=== PATIENT | female | born 1980 | race Caucasian/White ===

== ENCOUNTER 2022-03-02 12:52 | Emergency (ER) | payer SELFPAY ==
[2022-03-02] MEDS ORDERED: Dexamethasone 10 MG/ML VIAL ONE (14:49)
== END 2022-03-02 14:55 | disposition home or self-care (01) ==
LOC: CSHERS 12:52
DX: K04.7 Periapical abscess without sinus (principal); F17.210 Nicotine dependence, cigarettes, uncomplicated
CPT/HCPCS: 99282; J1100

== ENCOUNTER 2022-08-25 15:14 | Emergency (ER) | payer SELFPAY ==
[~2022-08-25 15:14] MED LIST: Iopamidol 300 61% 100 ML VIAL FS ONE
[2022-08-25 15:52] LABS: #Basophils 0.1 10x3/uL (0.0-0.2); #Eosinphils 0.1 10x3/uL (0.0-0.5); #Monocytes 0.8 10x3/uL (0.0-1.1); #Neutrophils 6.3 10x3/uL (1.5-8.4); %Eosinophils 1.2 % (0.0-6.0); %Lymphocytes 36.9 % (18.0-47.0); %Monocytes 6.7 % (0.0-10.0); %Neutrophils 53.9 % (40.0-75.0); Hemoglobin 16.6 g/dL (12.0-15.5); Mean Corpuscular HGB CONC 34.1 g/dL (32.0-36.0); Mean Corpuscular Hemoglobin 35.2 pg (27.0-33.0); Mean Corpuscular Volume 103.2 fl (81.6-98.3); Mean Platelet Volume 9.2 fl (7.4-10.4); Platelet Count 279 10x3/uL (150-450); RBC Distribution Width 12.6 % (11.5-14.5); Red Blood Cell (RBC) Count 4.72 10x6/uL (3.90-5.03); White Blood Cell (WBC) Count 11.7 10x3/uL (3.5-10.5)
[2022-08-25 16:06] LABS: ALT (SGPT) 12 U/L (8-55); AST (SGOT) 26 U/L (5-34); Albumin 4.5 g/dL (3.5-5.0); Alkaline Phosphatase 103 U/L (40-110); Anion Gap 15 mmol/L (10-20); BUN (Urea Nitrogen) 8 mg/dL (7.0-18.7); Bilirubin, Total 1.8 mg/dL (0.2-1.2); Calc. Creatinine Clearance 0 mL/min (70-130); Calcium 9.8 mg/dL (7.8-10.44); Carbon Dioxide 25 mmol/L (22-29); Chloride 103 mmol/L (98-107); Estimated GFR 98; Globulin 3.6 g/dL (2.4-3.5); Glucose 107 mg/dL (70-105); Potassium 3.6 mmol/L (3.5-5.1); Protein, Total 8.1 g/dL (6.0-8.3); Sodium 139 mmol/L (136-145)
== END 2022-08-25 17:02 | disposition home or self-care (01) ==
LOC: CSHERS 15:14
DX: J38.7 Other diseases of larynx (principal); R59.1 Generalized enlarged lymph nodes
CPT/HCPCS: 70491; 80053; 85025; Q9967

== ENCOUNTER 2022-10-24 06:39 | Day surgery (SDC) | payer OTHER ==
[2022-10-23 10:22] VITALS: BMI 21.4
[2022-10-24] MEDS ORDERED: Midazolam HCl 2 mg/2 ml Vial ONE (08:02)
[2022-10-24] MEDS ORDERED: Esmolol 100 MG/10 ML VIAL ONE (08:16)
[2022-10-24] MEDS ORDERED: Dexamethasone 4 mg/ml Vial ONE (08:16)
[2022-10-24] MEDS ORDERED: Ondansetron PF 4 MG/2 ML Vial ONE (08:16)
[2022-10-24] MEDS ORDERED: KETAMINE 100 MG/ML (5ML VIAL) ONE (08:19)
[2022-10-24] MEDS ORDERED: CEFAZOLIN 2 GM VIAL ONE (08:22)
[2022-10-24] MEDS ORDERED: PROPOFOL 20 ML ONE (08:24)
[2022-10-24] MEDS ORDERED: fentaNYL 50 mcg/mL 1 mL Vial ONE (09:06)
[2022-10-24] MEDS ORDERED: Oxymetazoline HCl 0.05% ( 15 ML ) ONE (09:10)
[2022-10-24] MEDS ORDERED: Racepinephrine 2.25% 0.5 ML NEB ONE (09:21)
[2022-10-24] MEDS ORDERED: Sodium Chloride For Inhalation 0.9% 3 ML NEB ONE (09:26)
[2022-10-24] MEDS ORDERED: HYDROcodone/Acetaminophen 5/325 mg Tablet PO PRN (09:35)
[2022-10-24] MEDS ORDERED: Acetaminophen 325 MG TAB PO PRN (09:35)
[2022-10-24] MEDS ORDERED: Meperidine HCl/PF 25 MG/ML VIAL ONE (09:49)
[2022-10-24] MEDS ORDERED: EPINEPHrine 1 MG/ML AMP ONE (11:22)
[2022-10-24] MEDS ORDERED: Bupivacaine PF 0.5% 30 ML VIAL ONE (11:22)
== END 2022-10-24 10:45 | disposition home or self-care (01) ==
LOC: CSHSDC 06:39
PROVIDERS: ATTEND Surgery
PROC: 0JH63WZ Insertion of Totally Implantable Vascular Access Device into Chest Subcutaneous Tissue and Fascia, Percutaneous Approach (ICD-10-PCS; principal; 2022-10-24)
DX: C01 Malignant neoplasm of base of tongue (principal); R59.0 Localized enlarged lymph nodes; F17.210 Nicotine dependence, cigarettes, uncomplicated
CPT/HCPCS: 71045; C1788; J0171; J1100; J2175; J2250; J2405; J2704; J3010; S0020

== ENCOUNTER 2023-02-05 22:45 | Emergency (ER) | payer OTHER ==
[2023-02-06] MEDS ORDERED: Ondansetron ODT 4 MG TAB ONE (00:18)
[2023-02-06] MEDS ORDERED: Famotidine/PF 20 mg/2ml Vial ONE (00:49)
[2023-02-06 02:03] LABS: ALT (SGPT) 9 U/L (8-55); AST (SGOT) 17 U/L (5-34); Albumin 3.7 g/dL (3.5-5.0); Alkaline Phosphatase 73 U/L (40-110); Anion Gap 16 mmol/L (10-20); BUN (Urea Nitrogen) 20 mg/dL (7.0-18.7); Bilirubin, Total 1.4 mg/dL (0.2-1.2); Calc. Creatinine Clearance 0 mL/min (70-130); Calcium 9.5 mg/dL (7.8-10.44); Carbon Dioxide 28 mmol/L (22-29); Chloride 96 mmol/L (98-107); Estimated GFR 112; Globulin 3.3 g/dL (2.4-3.5); Glucose 113 mg/dL (70-105); Potassium 3.3 mmol/L (3.5-5.1); Sodium 137 mmol/L (136-145)
[2023-02-06 02:06] LABS: Hematocrit 26.2 % (34.9-44.5); Hemoglobin 9.6 g/dL (12.0-15.5); Mean Corpuscular HGB CONC 36.6 g/dL (32.0-36.0); Mean Corpuscular Hemoglobin 31.7 pg (27.0-33.0); Mean Corpuscular Volume 86.5 fl (81.6-98.3); Mean Platelet Volume 9.4 fl (7.4-10.4); Platelet Count 61 10x3/uL (150-450); RBC Distribution Width 15.1 % (11.5-14.5); Red Blood Cell (RBC) Count 3.03 10x6/uL (3.90-5.03); White Blood Cell (WBC) Count 1.9 10x3/uL (3.5-10.5)
[2023-02-06 02:32] LABS: MDiff Complete? YES
[2023-02-06 02:42] LABS: Platelet Adequacy Comment Appears Decreased
[2023-02-06 02:52] LABS: Large Platelets SLIGHT (None Seen); RBC Morph Comment Within Normal Limits
[2023-02-06 02:55] LABS: Band 8 % (5-11); Lymphocytes 22 % (21-51); Monocytes 16 % (0-10); Neutrophil 54 % (42-75)
== END 2023-02-06 03:15 | disposition home or self-care (01) ==
LOC: CSHERS 22:45
DX: R04.2 Hemoptysis (principal); F17.210 Nicotine dependence, cigarettes, uncomplicated
CPT/HCPCS: 71045; 80053; 85025; 85060; 96374; Q0162; S0028

== ENCOUNTER 2023-04-05 13:20 | Inpatient (IN) | payer OTHER, MEDICAID ==
[2023-04-05 14:22] LABS: ALT (SGPT) 13 U/L (8-55); AST (SGOT) 16 U/L (5-34); Albumin 3.4 g/dL (3.5-5.0); Alkaline Phosphatase 101 U/L (40-110); Anion Gap 18 mmol/L (10-20); BUN (Urea Nitrogen) 54 mg/dL (7.0-18.7); Bilirubin, Total 0.4 mg/dL (0.2-1.2); Calc. Creatinine Clearance 0 mL/min (70-130); Calcium 9.3 mg/dL (7.8-10.44); Carbon Dioxide 31 mmol/L (22-29); Chloride 89 mmol/L (98-107); Estimated GFR 31; Globulin 3.5 g/dL (2.4-3.5); Glucose 124 mg/dL (70-105); Lipase 4 U/L (8-78); Protein, Total 6.9 g/dL (6.0-8.3); Sodium 134 mmol/L (136-145)
[2023-04-05 14:28] LABS: Troponin I Less than 0.010 ng/mL (< 0.028)
[2023-04-05 14:34] LABS: #Eosinphils 0.2 10x3/uL (0.0-0.5); #Monocytes 0.8 10x3/uL (0.0-1.1); #Neutrophils 10.4 10x3/uL (1.5-8.4); %Basophils 0.2 % (0.0-2.0); %Eosinophils 1.2 % (0.0-6.0); %Lymphocytes 4.9 % (18.0-47.0); %Monocytes 6.7 % (0.0-10.0); %Neutrophils 86.3 % (40.0-75.0); BHCG - Serum Negative (NEGATIVE); Hemoglobin 6.6 g/dL (12.0-15.5); Mean Corpuscular Hemoglobin 32.2 pg (27.0-33.0); Mean Corpuscular Volume 97.6 fl (81.6-98.3); Mean Platelet Volume 9.6 fl (7.4-10.4); Platelet Count 376 10x3/uL (150-450); Pregs Control Background? CLEAR/WHITE (CLR/WHITE); Pregs Control Bar Appear? YES (CONTROL BAR); RBC Distribution Width 15.5 % (11.5-14.5); Red Blood Cell (RBC) Count 2.05 10x6/uL (3.90-5.03); White Blood Cell (WBC) Count 12.1 10x3/uL (3.5-10.5)
[2023-04-05 14:35] LABS: Actual Bicarbonate (HCO3a) 28.9 mEq/L (22-28); Analyzer IN Cardio CS ER; CO2 Tension 44.9 mmHg (35.0-45.0); Calcium, Ionized (arterial) 1.13 mmol/L (1.12-1.30); Carboxyhemoglobin (COHb) 0.1 gm% (0.0-3.0); Hematocrit-ABG 24 % (36.0-47.0); Hemoglobin (Hb) 8.2 g/dL (12.0-16.0); O2 Tension (PaO2), arterial 93.4 mmHg (80.0-100.0); Potassium - ABG Lab 3.62 mmol/L (3.70-5.30); Puncture Site RBA; pH, Arterial 7.426 (7.35-7.45)
[2023-04-05 14:39] LABS: ALV-art Gradient 206.975 mmHg (0-20)
[2023-04-05 15:24] LABS: SARS-CoV-2 NAA Rapid Test Not Detected (NotDetected)
[2023-04-05] MEDS ORDERED: Pantoprazole 40 MG VIAL ONE (16:44)
[2023-04-05] MEDS ORDERED: NOREPINEPHRINE 8 MG/250 ML-D5W 250 ML IVPB SCH (16:45)
[2023-04-05] MEDS ORDERED: NOREPINEPHRINE 8 MG/250 ML-D5W 250 ML ONE (16:48)
[2023-04-05 16:53] LABS: Iron 17 ug/dL (50-170); Iron Binding Capacity, Total 204 mcg/dL (265-497)
[2023-04-05] MEDS ORDERED: Piperacillin/Tazobactam 3.375 GM in Sodium Chloride 0.9% 100 ML IVPB SCH (18:00)
[2023-04-05] MEDS: Lactated Ringer's 1,000 ML IV SCH (18:08)
[2023-04-05] MEDS ORDERED: Acetaminophen 650 MG/20.3 ML UDCUP PO PRN (18:51)
[2023-04-05] MEDS: HYDROcodone/Acetaminophen 10/325 mg Tablet PO PRN ×2 (18:54→23:17)
[2023-04-05] MEDS: Pantoprazole 80 MG, Admixture Fee 1 EACH in Sodium Chloride 0.9% 100 ML IVPB SCH (19:55)
[2023-04-05 20:53] LABS: Hematocrit 21.5 % (34.9-44.5); Hemoglobin 7.3 g/dL (12.0-15.5); Platelet Count 302 10x3/uL (150-450)
[2023-04-05 21:02] LABS: Lactic Acid 1.2 mmol/L (0.5-2.2)
[2023-04-05] MEDS: Piperacillin/Tazobactam 3.375 GM in Sodium Chloride 0.9% 100 ML IVPB SCH (21:13)
[2023-04-05 23:41] LABS: Hematocrit 25.4 % (34.9-44.5); Hemoglobin 8.6 g/dL (12.0-15.5); Platelet Count 293 10x3/uL (150-450)
[2023-04-06] MEDS: Lactated Ringer's 1,000 ML IV SCH ×2 (00:27→09:28)
[2023-04-06 03:26] LABS: #Eosinphils 0.1 10x3/uL (0.0-0.5); #Monocytes 1.1 10x3/uL (0.0-1.1); #Neutrophils 11.2 10x3/uL (1.5-8.4); %Basophils 0.3 % (0.0-2.0); %Lymphocytes 7.3 % (18.0-47.0); %Monocytes 8.3 % (0.0-10.0); %Neutrophils 82.4 % (40.0-75.0); Hematocrit 23.7 % (34.9-44.5); Mean Corpuscular HGB CONC 33.8 g/dL (32.0-36.0); Mean Corpuscular Hemoglobin 32.3 pg (27.0-33.0); Mean Corpuscular Volume 95.6 fl (81.6-98.3); Mean Platelet Volume 9.1 fl (7.4-10.4); Platelet Count 288 10x3/uL (150-450); RBC Distribution Width 16.6 % (11.5-14.5); Red Blood Cell (RBC) Count 2.48 10x6/uL (3.90-5.03); White Blood Cell (WBC) Count 13.6 10x3/uL (3.5-10.5)
[2023-04-06 03:42] LABS: Anion Gap 13 mmol/L (10-20); BUN (Urea Nitrogen) 33 mg/dL (7.0-18.7); Calc. Creatinine Clearance 53 mL/min (70-130); Carbon Dioxide 31 mmol/L (22-29); Chloride 99 mmol/L (98-107); Estimated GFR 65; Glucose 138 mg/dL (70-105); Sodium 139 mmol/L (136-145)
[2023-04-06] MEDS: Pantoprazole 80 MG, Admixture Fee 1 EACH in Sodium Chloride 0.9% 100 ML IVPB SCH ×2 (05:06→18:11)
[2023-04-06] MEDS: Piperacillin/Tazobactam 3.375 GM in Sodium Chloride 0.9% 100 ML IVPB SCH ×3 (05:09→22:32)
[2023-04-06] MEDS: HYDROcodone/Acetaminophen 10/325 mg Tablet PO PRN ×2 (08:29→17:38)
[2023-04-06] MEDS ORDERED: Sodium Chloride 0.9% 1,000 ML IV SCH (10:45)
[2023-04-06] MEDS: Sodium Chloride 0.9% 1,000 ML IV SCH ×2 (10:49→17:36)
[2023-04-06 11:55] LABS: Legionella Urinary Ag Negative (Negative); Strep pneumo Urine Ag NEGATIVE (NEGATIVE)
[2023-04-06 12:25] LABS: Hematocrit 23.2 % (34.9-44.5); Hemoglobin 7.7 g/dL (12.0-15.5); Platelet Count 281 10x3/uL (150-450)
[2023-04-07] MEDS: Sodium Chloride 0.9% 1,000 ML IV SCH ×2 (01:46→12:14)
[2023-04-07 03:18] LABS: #Eosinphils 0.2 10x3/uL (0.0-0.5); #Monocytes 1.1 10x3/uL (0.0-1.1); #Neutrophils 8.6 10x3/uL (1.5-8.4); %Basophils 0.4 % (0.0-2.0); %Eosinophils 1.7 % (0.0-6.0); %Lymphocytes 8.5 % (18.0-47.0); %Neutrophils 78.2 % (40.0-75.0); Hematocrit 22.9 % (34.9-44.5); Hemoglobin 7.6 g/dL (12.0-15.5); Mean Corpuscular HGB CONC 33.2 g/dL (32.0-36.0); Mean Corpuscular Hemoglobin 32.3 pg (27.0-33.0); Mean Corpuscular Volume 97.4 fl (81.6-98.3); Mean Platelet Volume 9.4 fl (7.4-10.4); Platelet Count 279 10x3/uL (150-450); RBC Distribution Width 17.4 % (11.5-14.5); Red Blood Cell (RBC) Count 2.35 10x6/uL (3.90-5.03)
[2023-04-07 03:45] LABS: Anion Gap 11 mmol/L (10-20); BUN (Urea Nitrogen) 13 mg/dL (7.0-18.7); Calc. Creatinine Clearance 88 mL/min (70-130); Calcium 8.5 mg/dL (7.8-10.44); Carbon Dioxide 29 mmol/L (22-29); Chloride 108 mmol/L (98-107); Estimated GFR 111; Glucose 106 mg/dL (70-105); Potassium 3.7 mmol/L (3.5-5.1); Sodium 144 mmol/L (136-145)
[2023-04-07] MEDS: Pantoprazole 80 MG, Admixture Fee 1 EACH in Sodium Chloride 0.9% 100 ML IVPB SCH (05:58)
[2023-04-07] MEDS: Piperacillin/Tazobactam 3.375 GM in Sodium Chloride 0.9% 100 ML IVPB SCH ×3 (06:21→21:37)
[2023-04-07] MEDS ORDERED: Ipratropium/Albuterol 3 ML NEB NEB PRN (08:08)
[2023-04-07] MEDS ORDERED: Glycopyrrolate 0.2 MG/ML 5 ML SYRINGE SLOW IVP SCH (08:09)
[2023-04-07] MEDS ORDERED: Sodium Chloride 0.9% 1,000 ML IV SCH (08:09)
[2023-04-07] MEDS ORDERED: Lactated Ringer's 500 ML IV SCH (08:15)
[2023-04-07] MEDS ORDERED: Electrolyte Replacement Protocol 1 EACH FS SCH (08:15)
[2023-04-07] MEDS ORDERED: Scopolamine 1 mg/72 hour Patch TD SCH (08:30)
[2023-04-07] MEDS: Ondansetron PF 4 MG/2 ML Vial IVP PRN (08:51)
[2023-04-07] MEDS: Pantoprazole 40 MG VIAL IVP SCH ×2 (08:56→21:37)
[2023-04-07 10:00] VITALS: BMI 22.5
[2023-04-07] MEDS: HYDROcodone/Acetaminophen 10/325 mg Tablet PO PRN ×2 (12:13→21:35)
[2023-04-07 12:37] LABS: Hematocrit 24.2 % (34.9-44.5); Hemoglobin 8.1 g/dL (12.0-15.5)
[2023-04-08 03:01] LABS: #Eosinphils 0.2 10x3/uL (0.0-0.5); #Monocytes 0.8 10x3/uL (0.0-1.1); #Neutrophils 5.9 10x3/uL (1.5-8.4); %Basophils 0.5 % (0.0-2.0); %Eosinophils 1.9 % (0.0-6.0); %Monocytes 9.5 % (0.0-10.0); %Neutrophils 73.6 % (40.0-75.0); Hematocrit 22.4 % (34.9-44.5); Hemoglobin 7.2 g/dL (12.0-15.5); Mean Corpuscular HGB CONC 32.1 g/dL (32.0-36.0); Mean Corpuscular Volume 99.6 fl (81.6-98.3); Mean Platelet Volume 9.1 fl (7.4-10.4); Platelet Count 260 10x3/uL (150-450); Red Blood Cell (RBC) Count 2.25 10x6/uL (3.90-5.03)
[2023-04-08 03:13] LABS: Anion Gap 11 mmol/L (10-20); BUN (Urea Nitrogen) 8 mg/dL (7.0-18.7); Calc. Creatinine Clearance 89 mL/min (70-130); Calcium 8.4 mg/dL (7.8-10.44); Carbon Dioxide 26 mmol/L (22-29); Chloride 109 mmol/L (98-107); Estimated GFR 111; Glucose 81 mg/dL (70-105); Magnesium 1.5 mg/dL (1.6-2.6); Potassium 3.3 mmol/L (3.5-5.1); Sodium 143 mmol/L (136-145)
[2023-04-08 03:46] LABS: Phosphorus 3.5 mg/dL (2.3-4.7)
[2023-04-08] MEDS ORDERED: Magnesium 2 GM/50 ML(in water) 2 GM in Premix 1 BAG IVPB SCH (05:00)
[2023-04-08] MEDS: Piperacillin/Tazobactam 3.375 GM in Sodium Chloride 0.9% 100 ML IVPB SCH (06:34)
[2023-04-08 07:32] VITALS: BP 103/60; TEMP 98.8
[2023-04-08] MEDS ORDERED: Potassium Bicarbonate/Cit Ac 20 MEQ TAB PO SCH (08:00)
[2023-04-08] MEDS ORDERED: Potassium Chloride 20 MEQ TAB PO SCH (08:00)
[2023-04-08] MEDS: Pantoprazole 40 MG VIAL IVP SCH (08:13)
[2023-04-08] MEDS ORDERED: Morphine 2 MG/ML VIAL SLOW IVP SCH (09:00)
[2023-04-08] MEDS: Ondansetron PF 4 MG/2 ML Vial IVP PRN (09:03)
[2023-04-08] MEDS: HYDROcodone/Acetaminophen 10/325 mg Tablet PO PRN (11:46)
[2023-04-09] MEDS ORDERED: Pantoprazole 40 MG VIAL IVP SCH (09:00)
== END 2023-04-08 14:56 | disposition home or self-care (01) | DRG 871 ==
LOC: CSHERS 13:20 → CSHIMCU 14:13
PROVIDERS: ADMIT Internal Medicine; ATTEND Internal Medicine
PROC: 30233N1 Transfusion of Nonautologous Red Blood Cells into Peripheral Vein, Percutaneous Approach (ICD-10-PCS; principal; 2023-04-05)
PROC: 4A033R1 Measurement of Arterial Saturation, Peripheral, Percutaneous Approach (ICD-10-PCS; 2023-04-05)
PROC: 3E033XZ Introduction of Vasopressor into Peripheral Vein, Percutaneous Approach (ICD-10-PCS; 2023-04-05)
PROC: 3E03329 Introduction of Other Anti-infective into Peripheral Vein, Percutaneous Approach (ICD-10-PCS; 2023-04-05)
DX: A41.9 Sepsis, unspecified organism (principal); J18.9 Pneumonia, unspecified organism; R65.21 Severe sepsis with septic shock; J95.01 Hemorrhage from tracheostomy stoma; D62 Acute posthemorrhagic anemia; N17.9 Acute kidney failure, unspecified; D63.8 Anemia in other chronic diseases classified elsewhere; C10.9 Malignant neoplasm of oropharynx, unspecified; Z79.899 Other long term (current) drug therapy; Z98.890 Other specified postprocedural states; Z87.891 Personal history of nicotine dependence; Z11.52 Encounter for screening for COVID-19
CPT/HCPCS: 36415; 36430; 36600; 71045; 71250; 80048; 80053; 82728; 82805; 83540; 83550; 83605; 83690; 83735; 83880; 84100; 84484; 84703; 85025; 86850; 86900; 86901; 87040; 87070; 87077; 87186; 87205; 87449; 87899; 93005; 94640; 94760; 94762; C9113; J2272; J2405; J2543; J3475; J3490; J7050; J7120; P9016

== ENCOUNTER 2023-05-11 16:49 | Emergency (ER) | payer OTHER ==
[2023-05-11 18:38] LABS: #Basophils 0.1 10x3/uL (0.0-0.2); #Monocytes 0.8 10x3/uL (0.0-1.1); #Neutrophils 7.7 10x3/uL (1.5-8.4); %Basophils 0.5 % (0.0-2.0); %Eosinophils 0.2 % (0.0-6.0); %Lymphocytes 12.7 % (18.0-47.0); %Monocytes 8.4 % (0.0-10.0); %Neutrophils 77.8 % (40.0-75.0); Hematocrit 27.4 % (34.9-44.5); Hemoglobin 8.9 g/dL (12.0-15.5); Mean Corpuscular HGB CONC 32.5 g/dL (32.0-36.0); Mean Corpuscular Hemoglobin 31.4 pg (27.0-33.0); Mean Corpuscular Volume 96.8 fl (81.6-98.3); Mean Platelet Volume 8.9 fl (7.4-10.4); Platelet Count 285 10x3/uL (150-450); RBC Distribution Width 14.6 % (11.5-14.5); Red Blood Cell (RBC) Count 2.83 10x6/uL (3.90-5.03); White Blood Cell (WBC) Count 9.9 10x3/uL (3.5-10.5)
[2023-05-11 19:07] LABS: ALT (SGPT) 7 U/L (8-55); AST (SGOT) 14 U/L (5-34); Albumin 3.7 g/dL (3.5-5.0); Alkaline Phosphatase 112 U/L (40-110); Anion Gap 16 mmol/L (10-20); BUN (Urea Nitrogen) 13 mg/dL (7.0-18.7); Bilirubin, Total 0.7 mg/dL (0.2-1.2); Calc. Creatinine Clearance 0 mL/min (70-130); Calcium 9.8 mg/dL (7.8-10.44); Carbon Dioxide 26 mmol/L (22-29); Chloride 99 mmol/L (98-107); Estimated GFR 99; Globulin 3.8 g/dL (2.4-3.5); Glucose 94 mg/dL (70-105); Potassium 3.4 mmol/L (3.5-5.1); Protein, Total 7.5 g/dL (6.0-8.3); Sodium 138 mmol/L (136-145)
== END 2023-05-11 19:31 | disposition home or self-care (01) ==
LOC: CSHERS 16:49
DX: J20.9 Acute bronchitis, unspecified (principal); F17.210 Nicotine dependence, cigarettes, uncomplicated
CPT/HCPCS: 36416; 71045; 80053; 85025

== ENCOUNTER 2023-09-14 13:16 | Emergency (ER) | payer OTHER ==
[2023-09-14] MEDS ORDERED: Ondansetron PF 4 MG/2 ML Vial ONE (13:57)
[2023-09-14 14:19] LABS: #Basophils 0.04 10x3/uL (0.0-0.2); #Eosinphils 0.05 10x3/uL (0.0-0.5); #Monocytes 0.64 10x3/uL (0.0-1.1); #Neutrophils 6.53 10x3/uL (1.5-8.4); %Basophils 0.5 % (0.0-2.0); %Eosinophils 0.6 % (0.0-6.0); %Lymphocytes 13.6 % (18.0-47.0); %Monocytes 7.6 % (0.0-10.0); %Neutrophils 77.5 % (40.0-75.0); Hematocrit 33.9 % (34.9-44.5); Hemoglobin 11.7 g/dL (12.0-15.5); Mean Corpuscular HGB CONC 34.5 g/dL (32.0-36.0); Mean Corpuscular Volume 98.5 fL (81.6-98.3); Mean Platelet Volume 9.3 fL (7.4-10.4); Platelet Count 238 10x3/uL (150-450); RBC Distribution Width 12.7 % (11.5-14.5); Red Blood Cell (RBC) Count 3.44 10x6/uL (3.90-5.03); White Blood Cell (WBC) Count 8.4 10x3/uL (3.5-10.5)
[2023-09-14 14:34] LABS: ALT (SGPT) 24 U/L (8-55); AST (SGOT) 26 U/L (5-34); Albumin 4.2 g/dL (3.5-5.0); Alkaline Phosphatase 106 U/L (40-110); Anion Gap 21 mmol/L (10-20); BUN (Urea Nitrogen) 14 mg/dL (7.0-18.7); Bilirubin, Total 1.3 mg/dL (0.2-1.2); Calc. Creatinine Clearance 0 mL/min (70-130); Calcium 10.6 mg/dL (7.8-10.44); Carbon Dioxide 23 mmol/L (22-29); Chloride 100 mmol/L (98-107); Estimated GFR 107; Globulin 3.8 g/dL (2.4-3.5); Glucose 91 mg/dL (70-105); Magnesium 1.7 mg/dL (1.6-2.6); Potassium 4.5 mmol/L (3.5-5.1); Sodium 139 mmol/L (136-145)
[2023-09-14 16:29] LABS: Influenza A by NAA Not Detected (NotDetected); Influenza B by NAA Not Detected (NotDetected); SARS-CoV-2 NAA Rapid Test Not Detected (NotDetected)
== END 2023-09-14 17:03 | disposition home or self-care (01) ==
LOC: CSHERS 13:16
DX: R19.7 Diarrhea, unspecified (principal); R50.9 Fever, unspecified; R53.1 Weakness; R10.30 Lower abdominal pain, unspecified; F17.210 Nicotine dependence, cigarettes, uncomplicated
CPT/HCPCS: 74177; 80053; 83735; 85025; 96361; 96374; J2405; Q9967

== ENCOUNTER 2024-01-08 18:45 | Emergency (ER) | payer OTHER | END 2024-01-08 20:58 | disposition home or self-care (01) | LOC: CSHERS 18:45 | DX: H92.01 Otalgia, right ear (principal); F17.210 Nicotine dependence, cigarettes, uncomplicated | CPT/HCPCS: 99282 ==

== ENCOUNTER 2024-03-08 19:26 | Emergency (ER) | payer OTHER | END 2024-03-08 21:15 | disposition home or self-care (01) | LOC: CSHERS 19:26 | DX: R51.9 Headache, unspecified (principal); F17.210 Nicotine dependence, cigarettes, uncomplicated | CPT/HCPCS: 99283 ==

== ENCOUNTER 2024-04-05 15:54 | Emergency (ER) | payer OTHER ==
[2024-04-05 17:08] LABS: #Basophils Less than 0.03 10x3/uL (0.0-0.2); #Eosinophils Less than 0.03 10x3/uL (0.0-0.5); #Monocytes 0.68 10x3/uL (0.0-1.1); #Neutrophils 11.76 10x3/uL (1.5-8.4); %Basophils 0.2 % (0.0-2.0); %Eosinophils 0.1 % (0.0-6.0); %Lymphocytes 4.4 % (18.0-47.0); %Monocytes 5.2 % (0.0-10.0); %Neutrophils 89.6 % (40.0-75.0); Hematocrit 24.1 % (34.9-44.5); Hemoglobin 7.5 g/dL (12.0-15.5); Mean Corpuscular HGB CONC 31.1 g/dL (32.0-36.0); Mean Corpuscular Hemoglobin 31.1 pg (27.0-33.0); Mean Platelet Volume 9.7 fL (7.4-10.4); Platelet Count 196 10x3/uL (150-450); RBC Distribution Width 16.2 % (11.5-14.5); Red Blood Cell (RBC) Count 2.41 10x6/uL (3.90-5.03); White Blood Cell (WBC) Count 13.12 10x3/uL (3.5-10.5)
[2024-04-05 17:27] LABS: ALT (SGPT) 14 U/L (Less than 34); AST (SGOT) 56 U/L (11-34); Albumin 2.1 g/dL (3.1-4.5); Alkaline Phosphatase 305 U/L (40-110); Anion Gap 20 mmol/L (10-20); BUN (Urea Nitrogen) 22 mg/dL (7.0-18.7); Bilirubin, Total 0.6 mg/dL (0.3-1.2); Calc. Creatinine Clearance 0 mL/min (70-130); Calcium 9.8 mg/dL (7.8-10.44); Carbon Dioxide 23 mmol/L (22-29); Chloride 95 mmol/L (98-107); Estimated GFR 114; Globulin 3.9 g/dL (2.4-3.5); Glucose 68 mg/dL (70-105); Potassium 4.3 mmol/L (3.5-5.1); Sodium 134 mmol/L (136-145)
== END 2024-04-05 17:55 | disposition home or self-care (01) ==
LOC: CSHERS 15:54
DX: J18.9 Pneumonia, unspecified organism (principal); F17.210 Nicotine dependence, cigarettes, uncomplicated
CPT/HCPCS: 36415; 71045; 80053; 83880; 84145; 85025; 87428; 93005